=== PATIENT | male | born 1995 | race Caucasian/White ===

== ENCOUNTER 2017-06-03 03:52 | Inpatient (IN) | payer OTHER ==
[~2017-06-03] VITALS: Ht 177.8 cm; Wt 85.3 kg
[~2017-06-03 03:52] MED LIST: ABILIFY; AMOXICILLIN875 MG PO; MOTRIN400 MG PO; ZOFRAN4 MG PO
[2017-06-03 05:37] LABS: EOSINOPHIL COUNT 0.1 K/uL (0-0.3); HEMATOCRIT 41.8 % (38.0-50.0); IMMATURE GRANULOCYTE (%) 0.4 % (0.0-0.7); INSTRUMENT ABS NEUTROPHIL CT 6.3 K/uL; LYMPHOCYTE COUNT 2.4 K/uL (1.0-2.8); MCH 30.3 PG (29.0-34.0); MCHC 34.4 G/DL (30.0-36.0); MEAN PLAT.VOLUME 10.3 uM^3 (9.0-12.4); MONOCYTE (%) 9.3 % (3-12); MONOCYTE COUNT 0.9 K/uL (0-0.8); NEUTROPHIL (%) 64.7 % (45-76); NEUTROPHIL COUNT 6.3 K/uL (1.8-6.4); PLATELET COUNT 232 K/uL (156-360); RBC DIS.WIDTH-CV 11.9 % (11.8-14.6); RBC DIS.WIDTH-SD 38.5 % (39-53); RED BLOOD COUNT 4.75 M/uL (4.00-5.50); WHITE BLOOD COUNT 9.7 K/uL (4.1-10.2)
[2017-06-03 05:43] LABS: CHLORIDE 108 mEq/L (99-109); POTASSIUM 3.9 mEq/L (3.7-5.4); SODIUM 141 mEq/L (136-147)
[2017-06-03 05:45] LABS: GLUCOSE 104 mg/dL (70-99)
[2017-06-03 05:46] LABS: ANION GAP 8 MEQ/L (2-14)
[2017-06-03 05:48] LABS: GFR ESTIMATE (CALCULATED) > 59 mL/min/; SERUM ETHYL ALCOHOL < 10 mg/dL
[2017-06-03 05:49] LABS: UREA NITROGEN (BUN) 15 mg/dL (9-23)
[2017-06-03 09:57] LABS: ADD MEDTOX COMMENT Y; AMPHETAMINE NEGATIVE (500 ng/mL); BARBITURATES NEGATIVE (200 ng/mL); BENZODIAZEPINES NEGATIVE (150 ng/mL); COCAINE NEGATIVE (150 ng/mL); INTERNAL CONTROLS VALID? YES; METHADONE NEGATIVE (200 ng/mL); METHAMPHETAMINE NEGATIVE (500 ng/mL); OPIATES (MORPHINE) NEGATIVE (100 ng/mL); OXYCODONE NEGATIVE (100 ng/mL); PHENCYCLIDINE NEGATIVE (25 ng/mL); PROPOXYPHENE NEGATIVE (300 ng/mL); THC CANNABINOIDS PRESUMPTIVE POSITIVE (50 ng/mL); TRICYCLIC ANTIDEPRESSANTS NEGATIVE (300 ng/mL)
[2017-06-03 15:49] VITALS: BP 125/80
[2017-06-04 07:53] VITALS: BP 119/66
[2017-06-04 15:46] VITALS: BP 139/72
[2017-06-05 08:04] VITALS: BP 119/71
[2017-06-05 15:27] VITALS: BP 120/62
[2017-06-06 07:25] VITALS: BP 123/63
[2017-06-06 15:37] VITALS: BP 122/58
[2017-06-07 07:34] VITALS: BP 119/60
[2017-06-07 16:32] VITALS: BP 114/67
[2017-06-08 07:58] VITALS: BP 111/61
== END 2017-06-08 17:04 | disposition home or self-care (01) | DRG 885 ==
LOC: EME 03:52 → 1WEST 13:34 → EDOF 13:34 → 1WEST 13:34
PROVIDERS: Emergency Medicine
DX: F31.9 Bipolar disorder, unspecified (principal); F12.10 Cannabis abuse, uncomplicated; F20.9 Schizophrenia, unspecified; F22 Delusional disorders; G47.00 Insomnia, unspecified; R45.4 Irritability and anger; F29 Unspecified psychosis not due to a substance or known physiological condition
CPT/HCPCS: 80048; 84999; 85025; 90837; 97150 GO; 97165 GO; 99281; 99285; G0480

== ENCOUNTER 2018-02-22 15:20 | Emergency (ER) | payer OTHER ==
[~2018-02-22] VITALS: Ht 170.2 cm; Wt 96.8 kg
[2018-02-22 16:12] LABS: HEMATOCRIT 43.1 % (38.0-50.0); HEMOGLOBIN 15.2 G/DL (12.5-16.6); MCH 30.3 PG (29.0-34.0); MCHC 35.3 G/DL (30.0-36.0); MCV 85.9 FL (86-99); PLATELET COUNT 234 K/uL (156-360); RBC DIS.WIDTH-CV 11.7 % (11.8-14.6); RBC DIS.WIDTH-SD 36.5 % (39-53); RED BLOOD COUNT 5.02 M/uL (4.00-5.50); WHITE BLOOD COUNT 8.8 K/uL (4.1-10.2)
[2018-02-22 16:20] LABS: ALBUMIN 4.4 g/dL (3.2-4.8); CHLORIDE 108 mEq/L (99-109); POTASSIUM 3.8 mEq/L (3.7-5.4); SODIUM 143 mEq/L (136-147)
[2018-02-22 16:22] LABS: GLUCOSE 110 mg/dL (70-99); TOTAL PROTEIN 7.1 g/dL (6.4-8.3)
[2018-02-22 16:24] LABS: TOTAL BILIRUBIN 0.4 mg/dL (0.0-1.0)
[2018-02-22 16:25] LABS: SERUM ETHYL ALCOHOL < 10 mg/dL
[2018-02-22 16:26] LABS: ALKALINE PHOSPHATASE 75 IU/L (3-129); CREATININE 0.8 mg/dL (0.6-1.3); GFR ESTIMATE (CALCULATED) > 59 mL/min/ (58.99-99999)
[2018-02-22 16:27] LABS: AST (GOT) 21 IU/L (2-34); UREA NITROGEN (BUN) 19 mg/dL (9-23)
[2018-02-22 16:29] LABS: ALT (GPT) 43 IU/L (3-49)
[2018-02-22 17:07] LABS: APPEARANCE SL.HAZY ((CLEAR)); BILIRUBIN NEGATIVE; BLOOD NEGATIVE; COLOR YELLOW ((YELLOW)); GLUCOSE (STRIP) NEGATIVE; KETONES NEGATIVE; LEUKOCYTES NEGATIVE; NITRITE NEGATIVE; PROTEIN (STRIP) NEGATIVE; SPECIFIC GRAVITY 1.025 (1.000-1.030); UROBILINOGEN 0.2 MG/DL (0.2-1.0)
[2018-02-22 17:15] LABS: BACTERIA NONE SEEN /HPF; EPITHELIAL CELLS NONE SEEN /HPF; MUCUS TRACE /LPF; RED BLOOD CELLS 0-5 /HPF (0-5); UCUL ADDED? NO; WHITE BLOOD CELLS 0-5 /HPF (0-5)
[2018-02-22 17:22] LABS: AMPHETAMINE NEGATIVE (500 ng/mL); BARBITURATES NEGATIVE (200 ng/mL); BENZODIAZEPINES NEGATIVE (150 ng/mL); BUPRENORPHINE NEGATIVE (10 ng/mL); COCAINE NEGATIVE (150 ng/mL); METHADONE NEGATIVE (200 ng/mL); METHAMPHETAMINE NEGATIVE (500 ng/mL); OPIATES (MORPHINE) NEGATIVE (100 ng/mL); OXYCODONE NEGATIVE (100 ng/mL); PHENCYCLIDINE NEGATIVE (25 ng/mL); PROPOXYPHENE NEGATIVE (300 ng/mL); THC CANNABINOIDS NEGATIVE (50 ng/mL); TRICYCLIC ANTIDEPRESSANTS NEGATIVE (300 ng/mL)
[2018-02-22 21:12] VITALS: BP 131/79
== END 2018-02-22 21:14 ==
LOC: EME 15:20
PROVIDERS: Emergency Medicine
DX: F20.0 Paranoid schizophrenia (principal)
CPT/HCPCS: 80053; 81003; 85027; 90837; 99281; 99284; G0480